=== PATIENT | female | born 1960 | race Caucasian/White ===

== ENCOUNTER 2017-09-13 10:16 | Day surgery (SDC) | payer BC ==
[2017-09-11 11:24] VITALS: BMI 26.9
[~2017-09-13 10:16] MED LIST: LACTATED RINGERS 1,000 ML IV SCH
[2017-09-13 11:43] VITALS: RESP 18
[2017-09-13 11:45] VITALS: TEMP 98
[2017-09-13] MEDS ORDERED: PROPOFOL 10 MG/ML 20 ML VIAL IV ONE (12:55)
--- NOTE | 2017-09-13 13:14 | P.PCN ---
Date of Procedure: 09/13/17 Procedure(s) Performed: BRIEF HISTORY: Patient is a 57-year-old, pleasant, white female, scheduled for an upper endoscopy as a part of evaluation of shortness of breath, intermittent dysphagia, throat fullness and shortness of breath for the last 2 months duration. She was extensive workup done including a stress test, pulmonary evaluation and upper GI series that was all negative. She tried Prilosec 20 mg daily for a month with no help. Intermittent dysphagia/throat fullness/ shortness of breath PROCEDURE PERFORMED: Esophagogastroduodenoscopy with biopsy. PREOPERATIVE DIAGNOSIS: Intermittent dysphagia. IV sedation per anesthesia. PROCEDURE: After informed consent was obtained, the patient was brought into the endoscopy unit. IV sedation was administered by Anesthesia under continuous monitoring. Initially the Olympus GIF-140 video endoscope was inserted into the mouth. Esophagus intubated without any difficulty. It was gradually advanced into the stomach and duodenum and carefully examined. The bulb and the second part of the duodenum appeared normal. The scope at this time was withdrawn to the stomach, adequately insufflated with air, and upon careful examination, mucosa of the antrum, had mild gastritis and biopsies were done from this area. The body, cardia and the fundus appeared normal. The scope was then withdrawn into the esophagus. The GE junction was located at 39 cm from the incisors. The esophagus appeared normal. There were no erosions or ulcerations seen . Rest of the esophagus appeared normal. Biopsies were done from the duodenum distal/ mid esophagus and the patient tolerated the procedure well. IMPRESSION: 1. Small hiatal hernia but no evidence of esophagitis or esophageal stricture. 2. Mild antral gastritis. RECOMMENDATIONS: The findings of this examination were discussed with the patient as well as a family. She was advised to follow with the biopsy results..
[2017-09-13 13:44] VITALS: BP 125/79; PULSE 84
== END 2017-09-13 13:56 | disposition home or self-care (01) ==
LOC: ORWHC2ENDO 10:16
PROVIDERS: ATTEND Internal Medicine Gastroenterology
DX: K29.50 Unspecified chronic gastritis without bleeding (principal); K21.0 Gastro-esophageal reflux disease with esophagitis; K44.9 Diaphragmatic hernia without obstruction or gangrene; E78.5 Hyperlipidemia, unspecified; Z79.899 Other long term (current) drug therapy; Z88.0 Allergy status to penicillin; Z88.2 Allergy status to sulfonamides; Z88.5 Allergy status to narcotic agent; Z88.3 Allergy status to other anti-infective agents
CPT/HCPCS: 88305; 43239; J2704